=== PATIENT | male | born 1930 | race Caucasian/White ===

== ENCOUNTER → 2016-05-10 | Outpatient (CLI) | payer MEDICARE | LOC: RT 09:04 | PROVIDERS: ATTEND Family Medicine | DX: R06.00 Dyspnea, unspecified (principal) | CPT/HCPCS: 94761 ==

== ENCOUNTER → 2016-08-05 | Outpatient (CLI) | payer MEDICARE | LOC: RT 09:24 | PROVIDERS: ATTEND Family Medicine | DX: R09.02 Hypoxemia (principal) | CPT/HCPCS: 94620 ==